=== PATIENT | male | born 1960 | race Caucasian/White ===

== ENCOUNTER 2018-08-10 06:17 | Inpatient (IN) | payer MEDICAID ==
[~2018-08-10] VITALS: Ht 172.7 cm; Wt 77.5 kg
[~2018-08-10 06:17] MED LIST: NO HOME MEDS
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
[2018-08-10] MEDS ORDERED: LISI10TA4 PO (11:01)
[2018-08-10] MEDS ORDERED: CLON-527 PO (11:01)
[2018-08-10] MEDS ORDERED: KEP500T PO (11:01)
[2018-08-10] MEDS ORDERED: DICL100G30 (11:01)
[2018-08-10] MEDS ORDERED: CYCL-1 PO (11:01)
[2018-08-10] MEDS ORDERED: loperamide 2mg capsule PO PRN (11:05)
[2018-08-10] MEDS ORDERED: magnesium hydroxide 30ml (MOM) UD suspension PO PRN (11:05)
[2018-08-10] MEDS ORDERED: mag hydrox/Alum hydrox/simeth 30ml oral suspension PO PRN (11:05)
[2018-08-10] MEDS ORDERED: LORazepam 1 MG tablet PO PRN (11:05)
[2018-08-10] MEDS ORDERED: tuberculin, purif. prot. deriv. 5 units/0.1ml ID ONE (11:05)
[2018-08-10] MEDS: acetaminophen 325mg tablet PO PRN (11:47)
[2018-08-10] MEDS ORDERED: BACL10TA PO (12:02)
[2018-08-10] MEDS ORDERED: IBUP-1986 PO (12:02)
[2018-08-10] MEDS ORDERED: LEVE500T PO (12:02)
[2018-08-10] MEDS ORDERED: ESCI10TA54 PO (12:02)
[2018-08-10] MEDS ORDERED: FOLI1TAB16 PO (12:02)
[2018-08-10] MEDS ORDERED: GABA-532 PO (12:02)
[2018-08-10] MEDS ORDERED: CLON-528 PO (12:02)
--- NOTE | 2018-08-10 12:25 | NUR ---
Malnutrition consult re: "pt c/o losing 5 pounds in last month". Pt just admitted to [facility] pending H&P, physical assessment, and documented PO intake on regular diet. Pt with no recent visits to obtain wt hx. If pt truly lost 5 pounds in one month this would be non-significant wt loss of 3% in 1 month. Will continue to follow and assess for malnutrition once additional information can be obtained in EMR. Addendum: 08/10/18 at [address] Amended: Links added.
[2018-08-10] MEDS: nicotine 21mg patch - 24 hr TD SCH (13:26)
[2018-08-10] MEDS: gabapentin 300mg capsule PO SCH ×3 (13:28→20:56)
[2018-08-10] MEDS: baclofen 10mg tablet PO PRN (13:28)
[2018-08-10] MEDS: clonazePAM 0.5mg tablet PO PRN ×2 (16:57→22:29)
[2018-08-10] MEDS ORDERED: ibuprofen 200mg tablet PO PRN (17:30)
[2018-08-10 20:34] VITALS: BP 114/86
[2018-08-10] MEDS: levetiracetam 250mg tablet PO SCH (20:56)
[2018-08-10] MEDS: hydrOXYzine 25 MG tablet PO PRN (20:57)
[2018-08-10] MEDS: ibuprofen tablet 400 MG TABLET PO PRN (21:28)
[2018-08-10] MEDS: traZODone 50mg tablet PO PRN (23:20)
--- NOTE | 2018-08-11 01:07 | NUR ---
Nursing Progress Note: Legal hold: 5151 Exp 08/13/18 @ 1015 Client on involuntary status for DTS Report received from RONNIE Verma with use of SBAR Why are they here: Pt admitted from [facility]. Pt endorses suicide thoughts and plans to overdose on heroin which is readily available and abundant on the streets. Pt states I feel suicidal, I have for a long time. Pts in 05/2018 and his sister in September 2017. Pt is homeless and unemployed. Assessment What has happened this shift: Pt was sleeping in his room, with no apparent distress observed. Pt was up for HS snack. 1:1 assessment was performed at bedside. Pt was cooperative and medication compliant. Pt reports both his anxiety and depression 11/09. Pt continues to have SI and his plan is to OD on heroin. Pt is feeling hopeless, but state he feels safe here. Pt has a healing wound on scalp, wound is closed, some flaky skin noted. Pt states he has 2 children that are estranged. And is hoping he will able to apply for some sort of disability. Pt is a smoker and is wearing a nicotine patch. Pt requested to leave patch on until morning. This account underwriter explained the risks with this. It may effect pts sleep and can cause night alves. Pt states he will try this first night and see how he feels in the morning. This account underwriter encouraged using lozenges or gum for night instead. Pt was administered 50mg of Trazadone with effect. Pt has epilepsy and last seizure was reported for 08/06/18. S/I, H/I: Pt reports SI, using heroin to overdose A/VH: None reported or observed. Pt denies Sleep: Pt sleep with 50mg of Trazadone ADL's: Independent Group attendance: second shift supervisor, no group Were meds taken: Pt medication compliant Any med S/E: None reported or observed Mental Status Exam Appearance: Clean, appropriately dressed in green scrubs, looks older than stated age Eye contact: Good Behavior: Cooperative, guarded Speech: Clear, normal rate and rhythm Mood: Depressed Affect: Flat Thought process: Linear Thought Content: Pt worried about finding a place to live Cognition: A&O x4 Insight: Fair Judgment: Poor Interventions PRN's used: Motrin for pain, Klonopin for anxiety, Trazadone for sleeping Therapeutic interventions: Maintained a safe and supportive environment, provided medication administration and education, monitored for change in behavior and needed interventions, monitored for seizures, Q 15 min safety checks. Restraints/seclusion/emergency medication: N/A Justification of Continued Inpatient Treatment: Continued therapeutic support and medication management needed to provide stabilization to prevent decompensation, decrease risk to patient and readmittance.
[2018-08-11] MEDS: baclofen 10mg tablet PO PRN ×3 (05:54→23:48)
[2018-08-11] MEDS: ibuprofen tablet 400 MG TABLET PO PRN (05:54)
[2018-08-11] MEDS ORDERED: citalopram 20mg tablet PO SCH (08:00)
[2018-08-11] MEDS: clonazePAM 0.5mg tablet PO PRN ×2 (08:31→18:10)
[2018-08-11] MEDS: levetiracetam 250mg tablet PO SCH ×2 (08:52→20:52)
[2018-08-11] MEDS: lisinopril 10 MG tablet PO SCH (08:52)
[2018-08-11] MEDS: gabapentin 300mg capsule PO SCH (08:52)
[2018-08-11] MEDS: folic acid 1mg tablet PO SCH (08:53)
[2018-08-11] MEDS: nicotine 21mg patch - 24 hr TD SCH (08:55)
--- NOTE | 2018-08-11 09:06 | NUR ---
F/u: Pt PO 100% regular meals meeting needs and does not qualify for malnutrition at this time. Addendum: 08/11/18 at [address] Amended: Links added.
[2018-08-11] MEDS ORDERED: duloxetine 30mg CAPSULE.DR PO ONE (10:35)
[2018-08-11] MEDS ORDERED: buprenorphine/naloxone 2-0.5mg sublingual tablet SL ONE (10:35)
[2018-08-11 11:27] LABS: CHOL/HDL RATIO 2.8 (0.00-4.99); CHOLESTEROL 147 MG/DL (0-200); HDL CHOLESTEROL 53 MG/DL (35-60); LDL CHOLESTEROL 75 MG/DL (50-100); TRIGLYCERIDES 160 MG/DL (20-135)
[2018-08-11] MEDS: gabapentin 400mg capsule PO SCH ×3 (13:43→20:52)
[2018-08-11] MEDS: acetaminophen 325mg tablet PO PRN ×3 (13:48→23:48)
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
[2018-08-11] MEDS: buprenorphine/naloxone 2-0.5mg sublingual tablet SL SCH (20:52)
[2018-08-11] MEDS: traZODone 50mg tablet PO PRN (20:56)
--- NOTE | 2018-08-12 01:16 | NUR ---
Nursing Progress Note: Legal hold: 5151 Exp 08/13/18 @ 1015 Client on involuntary status for DTS Report received from JAIMEE Verma with use of SBAR Why are they here: Pt admitted from [facility]. Pt endorses suicide thoughts and plans to overdose on heroin which is readily available and abundant on the streets. Pt states I feel suicidal, I have for a long time. Pts in 05/2018 and his sister in September 2017. Pt is homeless and unemployed. Assessment What has happened this shift: Patient sits in community room watching TV on change of shift until bed time. He is cooperative with assessment and medication compliant. When asked if he was feeling suicidal he responded," I guess not", but would not elaborate any further. He says he feels "a little depressed." He talks about the of his , and the loss of a house that was "his nest egg." He utilizes PRN Tylenol and baclofen for his back pain. S/I, H/I: "I guess not" A/VH: Denies. Sleep: see sleep assessment ADL's: Independent Group attendance: Yes. Were meds taken: Pt medication compliant Any med S/E: None reported or observed Mental Status Exam Appearance: Clean,dressed in green scrubs Eye contact: fair Behavior: Cooperative, guarded Speech: Clear, normal rate and rhythm Mood: Depressed Affect: Flat Thought process: Linear Thought Content: Pt feeling depressed over loss of Cognition: A&O x4 Insight: Fair Judgment: Poor Interventions PRN's used: baclofen, Tylenol, trazodone Therapeutic interventions: Maintained a safe and supportive environment, provided medication administration and education, monitored for change in behavior and needed interventions, monitored for seizures, Q 15 min safety checks. Restraints/seclusion/emergency medication: N/A Justification of Continued Inpatient Treatment: Continued therapeutic support and medication management needed to provide stabilization, interrupt current crisis, and to prevent decompensation, decrease risk to patient and readmittance.
[2018-08-12] MEDS: clonazePAM 0.5mg tablet PO PRN ×2 (07:59→21:18)
[2018-08-12] MEDS: levetiracetam 250mg tablet PO SCH ×2 (08:00→20:05)
[2018-08-12] MEDS: folic acid 1mg tablet PO SCH (08:00)
[2018-08-12] MEDS: nicotine 21mg patch - 24 hr TD SCH (08:00)
[2018-08-12] MEDS ORDERED: duloxetine 30mg CAPSULE.DR PO SCH (08:00)
[2018-08-12] MEDS: gabapentin 400mg capsule PO SCH ×4 (08:01→21:18)
[2018-08-12] MEDS: lisinopril 10 MG tablet PO SCH (08:01)
[2018-08-12] MEDS: buprenorphine/naloxone 2-0.5mg sublingual tablet SL SCH ×2 (08:02→20:05)
[2018-08-12 08:12] VITALS: BP 101/70
[2018-08-12] MEDS: acetaminophen 325mg tablet PO PRN ×3 (09:34→23:30)
[2018-08-12] MEDS: hydrOXYzine 25 MG tablet PO PRN (13:59)
[2018-08-12] MEDS: baclofen 10mg tablet PO PRN ×2 (13:59→23:30)
[2018-08-12] MEDS: ibuprofen tablet 400 MG TABLET PO PRN (13:59)
--- NOTE | 2018-08-12 17:17 | NUR ---
Nursing Progress Note: Legal hold: 5151 Exp 08/13/18 @ 1015 Client on involuntary status for DTS Report received from JAIMEE Loza with use of SBAR Why are they here: Pt admitted from [facility]. Pt endorses suicide thoughts and plans to overdose on heroin which is readily available and abundant on the streets. Pt states I feel suicidal, I have for a long time. Pts in 05/2018 and his sister in September 2017. Pt is homeless and unemployed. Assessment What has happened this shift: Patient mainly stays in the group room during daytime, watching t.v., going to groups, eating and lightly socializing with peers. Clarified conversation yesterday with patient. He does state that one of his sisters last year. He was living with his half sister and her boyfriend in a field. The sister and boyfriend did not receive their SSI checks, and are struggling to survive. The patient has no form of income, so he went to the [facility] for two days before being admitting to this facility. Pt. has chronic pain and was put on Suboxone yesterday, patient states that Dr. Loco will increase today. Pt. does spend most of the day asking for medications, prns, and this occupies most of the patient's thoughts. Patient remains evasive about SI, drug use. Pt. does have obvious pain that is being treated. S/I, H/I: Pt will not or cannot say on SI. A/VH: Denies. Sleep: 6.5 NOC ADL's: Independent Group attendance: Yes. Were meds taken: Pt medication compliant Any med S/E: None reported or observed Mental Status Exam Appearance: Clean, appropriately dressed in green scrubs, looks older than stated age Eye contact: Good Behavior: Cooperative, guarded Speech: Clear, normal rate and rhythm Mood: Depressed Affect: Flat Thought process: Linear Thought Content: Pt worried about finding a place to live, no income. Cognition: A&O x4 Insight: Fair Judgment: Poor Interventions PRN's used: Klonopin, baclofen, motrin Therapeutic interventions: Maintained a safe and supportive environment, provided medication administration and education, monitored for change in behavior and needed interventions, monitored for seizures, Q 15 min safety checks. Restraints/seclusion/emergency medication: N/A Justification of Continued Inpatient Treatment: Continued therapeutic support and medication management needed to provide stabilization, interrupt current crisis, and to prevent decompensation, decrease risk to patient and readmittance.
[2018-08-12 20:41] VITALS: BP 105/65
[2018-08-12] MEDS: traZODone 50mg tablet PO PRN ×2 (21:18→21:58)
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
[2018-08-13 07:00] VITALS: BP 119/79
[2018-08-13] MEDS: nicotine 21mg patch - 24 hr TD SCH (08:23)
[2018-08-13] MEDS: LIDOcaine 5% patch TP SCH (08:24)
[2018-08-13] MEDS: levetiracetam 250mg tablet PO SCH ×2 (08:24→20:39)
[2018-08-13] MEDS: baclofen 10mg tablet PO PRN ×2 (08:25→20:39)
[2018-08-13] MEDS: folic acid 1mg tablet PO SCH (08:25)
[2018-08-13] MEDS: hydrOXYzine 25 MG tablet PO PRN (08:25)
[2018-08-13] MEDS: duloxetine 30mg CAPSULE.DR PO SCH (08:25)
[2018-08-13] MEDS: buprenorphine/naloxone 2-0.5mg sublingual tablet SL SCH ×2 (08:26→20:40)
[2018-08-13] MEDS: lisinopril 10 MG tablet PO SCH (08:27)
[2018-08-13] MEDS: gabapentin 400mg capsule PO SCH ×4 (08:33→20:40)
[2018-08-13] MEDS: ibuprofen tablet 400 MG TABLET PO PRN (10:56)
--- NOTE | 2018-08-13 12:05 | NUR ---
Nurses Note: Patient's suboxone was increased to 1.5 tablets. 1/2 tab wasted with Chip Pfeiffer RN.
--- NOTE | 2018-08-13 12:09 | NUR ---
Nursing Progress Note: Legal hold: 5250 Client on involuntary status for DTS Report received from JAIMEE Wright with use of SBAR Why are they here: Pt admitted from [facility]. Pt endorses suicide thoughts and plans to overdose on heroin which is readily available and abundant on the streets. Pt states I feel suicidal, I have for a long time. Pts in 05/2018 and his sister in September 2017. Pt is homeless and unemployed. Assessment What has happened this shift: Received patient sleeping in bed. Awakened for breakfast. Patient spends his day in group room, eating, going to groups and socializing with peers. New orders to increase Suboxone to 1.5 tabs b.i.d., Lidocaine patch applied to Lumbosacral area. Motrin given for pain in addition. Patient states that Suboxone only takes the edge off. Patient also given baclofen, hydroxyzine. Patient requesting Klonopin for pain, educated that this medication is not for pain, patient does not appear to be anxious at this time, and had already received hydroxyzine. 5250 served to patient. S/I, H/I: Passive SI A/VH: Denies. Sleep: 4.0 hrs NOC ADL's: Independent Group attendance: Yes. Were meds taken: Pt medication compliant Any med S/E: None reported or observed Mental Status Exam Appearance: Clean, appropriately dressed in green scrubs, looks older than stated age Eye contact: Good Behavior: Cooperative, guarded Speech: Clear, normal rate and rhythm Mood: Depressed Affect: Blunted Thought process: Linear Thought Content: Pt worried about finding a place to live, no income. Cognition: A&O x4 Insight: Fair Judgment: Poor Interventions PRN's used: Baclofen, motrin, hydroxyzine Therapeutic interventions: Maintained a safe and supportive environment, provided medication administration and education, monitored for change in behavior and needed interventions, monitored for seizures, Q 15 min safety checks. Restraints/seclusion/emergency medication: N/A Justification of Continued Inpatient Treatment: Continued therapeutic support and medication management needed to provide stabilization, interrupt current crisis, and to prevent decompensation, decrease risk to patient and readmittance.
[2018-08-13 20:00] VITALS: BP 111/67
[2018-08-13] MEDS: traZODone 50mg tablet PO PRN ×2 (20:40→22:09)
--- NOTE | 2018-08-13 23:46 | NUR ---
Nursing Progress Note: Legal hold: 5250 Client on involuntary status for DTS Report received from JAIMEE Wright with use of SBAR Why are they here: Pt admitted from [facility]. Pt endorses suicide thoughts and plans to overdose on heroin which is readily available and abundant on the streets. Pt states I feel suicidal, I have for a long time. Pts in 05/2018 and his sister in September 2017. Pt is homeless and unemployed. Assessment What has happened this shift: Pt was in hallway at change of shift. 1:1 assessment completed at bedside. Pt reports he continues to have pain 11/09. Pt states his lidocaine patch came off in the shower during day shift and he threw it away in the trash. Located lidocaine patch in shower trash can. Pt states "I'm always in pain, I've been taking opiates for years and now I'm cut off and none of these meds are helping for pain." Pt was offerered prns and provided w/ice pack prn. Pt spent time sitting in the group room and walking between his room, rec room and group room during the evening. Spent time watching tv. Pt removed his nicotine patch at evening med pass. Pt denies s/i stating "not today." S/I, H/I: denies A/VH: Denies. Sleep: pt is not sleeping much during the night, has difficult time falling asleep despite repeating dose of trazodone. ADL's: Independent Group attendance: Yes. Were meds taken: Pt medication compliant Any med S/E: None reported or observed Mental Status Exam Appearance: Clean, appropriately dressed in green scrubs, looks older than stated age Eye contact: Good Behavior: Cooperative, guarded Speech: Clear, normal rate and rhythm Mood: Depressed, anxious Affect: constricted Thought process: Linear Thought Content: Pt worried about finding a place to live, no income. Cognition: A&O x4 Insight: Fair Judgment: Poor Interventions PRN's used: Baclofen, Therapeutic interventions: Maintained a safe and supportive environment, provided medication administration and education, monitored for change in behavior and needed interventions, monitored for seizures, Q 15 min safety checks. Restraints/seclusion/emergency medication: N/A Justification of Continued Inpatient Treatment: Continued therapeutic support and medication management needed to provide stabilization, interrupt current crisis, and to prevent decompensation, decrease risk to patient and readmittance.
[2018-08-14] MEDS: baclofen 10mg tablet PO PRN (04:47)
[2018-08-14] MEDS: ibuprofen tablet 400 MG TABLET PO PRN (04:47)
[2018-08-14] MEDS: acetaminophen 325mg tablet PO PRN (04:47)
[2018-08-14 08:00] VITALS: BP 125/75
[2018-08-14] MEDS: folic acid 1mg tablet PO SCH (08:21)
[2018-08-14] MEDS: duloxetine 30mg CAPSULE.DR PO SCH (08:21)
[2018-08-14] MEDS: gabapentin 400mg capsule PO SCH (08:22)
[2018-08-14] MEDS: levetiracetam 250mg tablet PO SCH ×2 (08:22→20:17)
[2018-08-14] MEDS: lisinopril 10 MG tablet PO SCH (08:23)
[2018-08-14] MEDS: buprenorphine/naloxone 2-0.5mg sublingual tablet SL SCH ×2 (08:23→20:19)
[2018-08-14] MEDS: nicotine 21mg patch - 24 hr TD SCH (08:24)
[2018-08-14] MEDS: LIDOcaine 5% patch TP SCH (08:25)
[2018-08-14] MEDS: clonazePAM 0.5mg tablet PO PRN ×2 (09:38→15:52)
[2018-08-14] MEDS: tizanidine 4mg tablet PO PRN ×3 (09:38→20:18)
[2018-08-14] MEDS: gabapentin 300mg capsule PO SCH ×3 (12:45→20:18)
--- NOTE | 2018-08-14 16:38 | NUR ---
1:1 DISCHARGE PLANNING Pt interviewed with Nakul from [facility]. Pt was tentatively accepted for services. ADAN informed there is an extensive wait list. ELISE CamachoW
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
[2018-08-14 20:00] VITALS: BP 108/65
[2018-08-14] MEDS: traZODone 50mg tablet PO PRN (20:17)
--- NOTE | 2018-08-15 00:26 | NUR ---
Nursing Progress Note: The patient was up on the unit. He was friendly and pleasant during the evening assessment. He has been medication and treatment compliant. One to one with the patient to assess severity of depressive symptoms and self harm risk. The patient remains in q 15 minute safety checks and has not had any self injurious behaviors reported reported or observed. The patient stated that he felt more depressed and explained, "today I had a set back" because he went to group and when asked how he requested to show what he had done in one of the groups and it was a detective showing all his recent traumas that have happened to him this year. Interestingly the spelling was very poor and somewhat disorganized. He stated that he has not had any alcohol for the past month and has no desire to drink. He then added, "I need to find a way to get some finances" He reports anxiety and he stated that he has been a worrier his whole life. He endorses continued suicidal thoughts. He talked about being homeless and recently staying [place] a bridge. He denies medication side effects. He denies thoughts to harm others. He denies hallucinations and none were evident during the evening assessment. He has no plans for self care if he were to leave the inpatient unit. He stated his appetite is good. He appears well groomed and appropriately dressed. Insight is fair.
[2018-08-15] MEDS: ibuprofen tablet 400 MG TABLET PO PRN ×3 (04:25→23:37)
[2018-08-15] MEDS: LIDOcaine 5% patch TP SCH (07:41)
[2018-08-15] MEDS: nicotine 21mg patch - 24 hr TD SCH (07:41)
[2018-08-15] MEDS: levetiracetam 250mg tablet PO SCH ×2 (07:42→20:58)
[2018-08-15] MEDS: buprenorphine/naloxone 2-0.5mg sublingual tablet SL SCH ×2 (07:42→20:59)
[2018-08-15] MEDS: duloxetine 30mg CAPSULE.DR PO SCH (07:42)
[2018-08-15] MEDS: folic acid 1mg tablet PO SCH (07:42)
[2018-08-15] MEDS: gabapentin 300mg capsule PO SCH ×4 (07:42→20:59)
[2018-08-15] MEDS: lisinopril 10 MG tablet PO SCH (07:47)
[2018-08-15 08:00] VITALS: BP 102/69
[2018-08-15] MEDS: hydrOXYzine 25 MG tablet PO PRN (08:59)
[2018-08-15] MEDS: tizanidine 4mg tablet PO PRN (09:00)
[2018-08-15] MEDS: clonazePAM 0.5mg tablet PO PRN (12:51)
--- NOTE | 2018-08-15 15:36 | NUR ---
Pt with good appetite and PO 100% regular meals meeting needs Recommend: 1. Continue regular diet 2. Bowel care if needed 3. weekly weights Addendum: 08/15/18 at [address] Amended: Links added.
--- NOTE | 2018-08-15 16:28 | NUR ---
NURSING PROGRESS NOTE Legal hold: 5250 Client on involuntary status for DTS Report received from JAIMEE Wright with use of SBAR Why are they here: Pt admitted from [facility]. Pt endorses suicide thoughts and plans to overdose on heroin which is readily available and abundant on the streets. Pt states I feel suicidal, I have for a long time. Pts in 05/2018 and his sister in September 2017. Pt is homeless and unemployed. Assessment What has happened this shift: The patient was awake at change of shift. Ate breakfast and is med compliant. Depressed mood, anxious affect. Appears to have an essential tremor and denies being in etoh withdrawals. continue's to talk about 's , sisters and the of his best friends father. He is guarded when asked about suicidal thoughts and essentially doesn't answer the question. He c/o pain often today in his lower back and was given prn's for anxiety and muscle spasms. He paces and is hard to sit still. 5250 Hearing today was upheld. He cannot formulate a plan for housing. "He is med compliant and eating well. Has been accepted at [facility] but knows there is a waiting list. S/I, H/I: evasive and guarded A/VH: Denies. Sleep: None Group attendance: Yes. Were meds taken: Pt medication compliant Any med S/E: None reported or observed Mental Status Exam Appearance: Clean Eye contact: Fair Behavior: Cooperative Speech: Clear, normal rate and rhythm Mood: Depressed, anxious Affect: constricted Thought process: Linear Thought Content: About recent losses Cognition: A&O x4 Insight: Fair Judgment: Poor Interventions PRN's used: Klonopin, tylenol, Zanaflex Therapeutic interventions: Maintained a safe and supportive environment, provided medication administration and education, monitored for change in behavior and needed interventions, monitored for seizures, Q 15 min safety checks. Restraints/seclusion/emergency medication: N/A Justification of Continued Inpatient Treatment: Continued therapeutic support and medication management needed to provide stabilization, interrupt current crisis, and to prevent decompensation, decrease risk to patient and readmittance.
--- NOTE | 2018-08-15 16:39 | NUR ---
1:1 DISCHARGE PLANNING SW emailed Jamir at [facility] for SSI Advocacy and application needs. ADAN cc'd all SW's to assist in this health technical writer is out of the office at time of scheduling. ELISE CamachoW
[2018-08-15 19:00] VITALS: BP 110/70
[2018-08-15] MEDS: traZODone 50mg tablet PO PRN ×2 (20:59→23:37)
[2018-08-15] MEDS: acetaminophen 325mg tablet PO PRN (23:37)
--- NOTE | 2018-08-16 02:30 | NUR ---
Nicotine Patch removal: Nicotine patch removed after HS medications and properly disposed of.
--- NOTE | 2018-08-16 02:31 | NUR ---
NURSING PROGRESS NOTE Legal hold: 5250 Client on involuntary status for DTS Report received from JAIMEE Cisneros with use of SBAR Why are they here: Pt admitted from [facility]. Pt endorses suicide thoughts and plans to overdose on heroin which is readily available and abundant on the streets. Pt states I feel suicidal, I have for a long time. Pts in 05/2018 and his sister in September 2017. Pt is homeless and unemployed. Assessment What has happened this shift: Patient is up and in the group room at the change of shift. He is watching a movie with other peers. He does not interact much with others but spends most of his evening in the group room watching TV. He is compliant for a 1:1 assessment which is done in the observation room, He denies HI, AH/VH this shift. He does not talk much about SI when asked. 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 He is up late this evening with complaints of continued back pain and inability to fall asleep. He is given pain medications and a Trazodone 50 mg again as ordered, then provided with a fresh heat pack. S/I, H/I: Evasive A/VH: Denies. Sleep: None Group attendance: Yes. Were meds taken: Medication compliant Any med S/E: None reported or observed Mental Status Exam Appearance: Clean Eye contact: Fair Behavior: Cooperative Speech: Clear, normal rate and rhythm Mood: Depressed, anxious Affect: Constricted Thought process: Linear Thought Content: Back pain and inability to sleep Cognition: A&O x4 Insight: Fair Judgment: Poor Interventions PRN's used: Tylenol, Ibuprofen, Trazodone Therapeutic interventions: Maintained a safe and supportive environment, provided medication administration and education, monitored for change in behavior and needed interventions, monitored for seizures, Q 15 min safety checks. Restraints/seclusion/emergency medication: N/A Justification of Continued Inpatient Treatment: Continued therapeutic support and medication management needed to provide stabilization, interrupt current crisis, and to prevent decompensation, decrease risk to patient and readmittance.
[2018-08-16 08:00] VITALS: BP 106/70
[2018-08-16] MEDS: LIDOcaine 5% patch TP SCH (08:04)
[2018-08-16] MEDS: nicotine 21mg patch - 24 hr TD SCH (08:04)
[2018-08-16] MEDS: duloxetine 30mg CAPSULE.DR PO SCH ×2 (08:05→12:27)
[2018-08-16] MEDS: levetiracetam 250mg tablet PO SCH ×2 (08:05→20:38)
[2018-08-16] MEDS: folic acid 1mg tablet PO SCH (08:05)
[2018-08-16] MEDS: gabapentin 300mg capsule PO SCH ×4 (08:05→20:38)
[2018-08-16] MEDS: buprenorphine/naloxone 2-0.5mg sublingual tablet SL SCH ×2 (08:05→20:38)
[2018-08-16] MEDS: lisinopril 10 MG tablet PO SCH (08:06)
[2018-08-16] MEDS: ibuprofen tablet 400 MG TABLET PO PRN ×2 (12:27→21:53)
[2018-08-16] MEDS: tizanidine 4mg tablet PO PRN ×2 (12:28→20:36)
[2018-08-16] MEDS: clonazePAM 0.5mg tablet PO PRN (14:06)
--- NOTE | 2018-08-16 15:53 | NUR ---
NURSING PROGRESS NOTE Legal hold: 5250 Client on involuntary status for DTS Report received from JAIMEE Lennon with use of SBAR Why are they here: Pt admitted from [facility]. Pt endorses suicide thoughts and plans to overdose on heroin which is readily available and abundant on the streets. Pt states I feel suicidal, I have for a long time. Pts in 05/2018 and his sister in September 2017. Pt is homeless and unemployed. Assessment What has happened this shift: The patient was asleep at change of shift. He did get up for breakfast. Stated he did not sleep well last night due to pain issues in his back. He fell asleep at the group room table sitting up during mid morning. As the day progressed he was more alert. He is sad and hopeless regarding his future. He appreciates the help he is receiving here. He was treated for his back pain and anxiety and states the Klonopin helps his tremor "go away." Depressed mood and sad affect. Responds well to reassurance. S/I, H/I: Denies A/VH: Denies. Sleep: Napped frequently Group attendance: Yes. Were meds taken: Medication compliant Any med S/E: None reported or observed Mental Status Exam Appearance: Clean Eye contact: Fair Behavior: Cooperative Speech: Clear, normal rate and rhythm Mood: Depressed, anxious Affect: Sad Thought process: Linear Thought Content: Back pain and inability to sleep Cognition: A&O x4 Insight: Fair Judgment: Poor Interventions PRN's used: Tylenol, Ibuprofen, Klonopin Therapeutic interventions: Maintained a safe and supportive environment, provided medication administration and education, monitored for change in behavior and needed interventions, monitored for seizures, Q 15 min safety checks. Restraints/seclusion/emergency medication: N/A Justification of Continued Inpatient Treatment: Continued therapeutic support and medication management needed to provide stabilization, interrupt current crisis, and to prevent decompensation, decrease risk to patient and readmittance.
[2018-08-16 19:00] VITALS: BP 107/62
[2018-08-16] MEDS: traZODone 50mg tablet PO PRN ×2 (20:37→21:52)
[2018-08-16] MEDS: acetaminophen 325mg tablet PO PRN (20:37)
[2018-08-17] MEDS: clonazePAM 0.5mg tablet PO PRN ×2 (01:29→19:38)
[2018-08-17] MEDS: hydrOXYzine 25 MG tablet PO PRN ×2 (01:29→22:21)
[2018-08-17] MEDS: acetaminophen 325mg tablet PO PRN ×3 (01:30→22:22)
--- NOTE | 2018-08-17 02:05 | NUR ---
NURSING PROGRESS NOTE Legal hold: 5250 Client on involuntary status for DTS Report received from JAIMEE Cisneros with use of SBAR Why are they here: Pt admitted from [facility]. Pt endorses suicide thoughts and plans to overdose on heroin which is readily available and abundant on the streets. Pt states I feel suicidal, I have for a long time. Pts in 05/2018 and his sister in September 2017. Pt is homeless and unemployed. Assessment What has happened this shift: Patient is up and in the group room at the change of shift. He is sitting up in the chair sleeping. When awoken he is calm and agrees to a 1:1 assessment in his room. When asked about SI he denies it then states "This is not the place to think about that stuff." but would not elaborate on what he meant by his statement. He denies HI, AH/VH. He is goal oriented and does talk about his hopes to get out of here and get off the streets and be able to "function" and "get better". He is compliant with all his evening medications. Nicotine patch and Lidoderm patch removed during assessment. S/I, H/I: Denies SI, States "This is not the place to think about that stuff.", denies HI A/VH: Denies. Sleep: See sleep assessment Group attendance: No groups this shift. Were meds taken: Medication compliant Any med S/E: None reported or observed Mental Status Exam Appearance: Clean Eye contact: Fair Behavior: Cooperative Speech: Clear, normal rate and rhythm Mood: Depressed, anxious Affect: Constricted Thought process: Linear Thought Content: Pain, goal oriented focused on being able to get a place and "Function" Cognition: A&O x4 Insight: Fair Judgment: Poor Interventions PRN's used: Tylenol, Ibuprofen, Trazodone, Klonopin, Zanaflex Therapeutic interventions: Maintained a safe and supportive environment, provided medication administration and education, monitored for change in behavior and needed interventions, monitored for seizures, Q 15 min safety checks. Restraints/seclusion/emergency medication: N/A Justification of Continued Inpatient Treatment: Continued therapeutic support and medication management needed to provide stabilization, interrupt current crisis, and to prevent decompensation, decrease risk to patient and readmittance.
[2018-08-17] MEDS: nicotine 21mg patch - 24 hr TD SCH (07:49)
[2018-08-17 07:50] VITALS: BP 97/65
[2018-08-17] MEDS: gabapentin 300mg capsule PO SCH ×4 (07:50→20:28)
[2018-08-17] MEDS: levetiracetam 250mg tablet PO SCH ×2 (07:50→20:28)
[2018-08-17] MEDS: buprenorphine/naloxone 2-0.5mg sublingual tablet SL SCH ×2 (07:50→20:28)
[2018-08-17] MEDS: duloxetine 30mg CAPSULE.DR PO SCH ×2 (07:50→12:43)
[2018-08-17] MEDS: folic acid 1mg tablet PO SCH (07:51)
[2018-08-17] MEDS: tizanidine 4mg tablet PO PRN ×2 (07:51→19:38)
[2018-08-17] MEDS: ibuprofen tablet 400 MG TABLET PO PRN ×2 (07:51→19:38)
[2018-08-17] MEDS: lisinopril 10 MG tablet PO SCH (07:56)
[2018-08-17] MEDS: LIDOcaine 5% patch TP SCH (08:25)
--- NOTE | 2018-08-17 14:19 | NUR ---
NURSING PROGRESS NOTE: Legal hold: 5250 Client on involuntary status for DTS Report received from JAIMEE Lennon with use of SBAR Why are they here: Pt admitted from [facility]. Pt endorses suicide thoughts and plans to overdose on heroin which is readily available and abundant on the streets. Pt states I feel suicidal, I have for a long time. Pts in 05/2018 and his sister in September 2017. Pt is homeless and unemployed. Assessment What has happened this shift: Pt. Sleeping at change of shift. On initial interaction, requested medications for chronic pain. Cooperative with 1:1 assessment. Denies current SI, but also admits he has intermittent thoughts without a plan. States he feels worthless, when asked what causes him to feel this way he responded "my son tells me that". He then stated his son really doesn't know him. He discussed his current and previous struggles with alcohol. Stated "it makes you feel strong but it actually weakens you.". States his anxiety/depression is a 3/10 and pain is rated at 7/10. Up in community room for breakfast, returning to room for a nap. Minimal interaction with staff or other clients on the unit. Requested pain meds for chronic back pain. S/I, H/I: Denies SI, but admits to intermittent thoughts of harming himself. Denies a plan. denies HI A/VH: Denies. Sleep: 6.25 Group attendance: Were meds taken: Medication compliant Any med S/E: None reported or observed Mental Status Exam Appearance: Clean Eye contact: Fair Behavior: Cooperative Speech: Clear, normal rate and rhythm Mood: Depressed, anxious, I have one left, my , my sister , and my mother . Affect: Congruent with mood Thought process: Linear Thought Content: Pain, purpose or function in life. Cognition: A&O x4 Insight: Fair Judgment: Poor Interventions PRN's used: Ibuprofen, Zanaflex Therapeutic interventions: Maintained a safe and supportive environment, provided medication administration and education, monitored for change in behavior and needed interventions, monitored for seizures, Q 15 min safety checks. Restraints/seclusion/emergency medication: N/A Justification of Continued Inpatient Treatment: Continued therapeutic support and medication management needed to provide stabilization, interrupt current crisis, and to prevent decompensation, decrease risk to patient and readmittance. Addendum: 08/17/18 at 1508 by Yeni Reynolds RN Patient remained out of his room in the afternoon, participating in group
[2018-08-17 19:00] VITALS: BP 123/77
[2018-08-17] MEDS: traZODone 50mg tablet PO PRN ×2 (20:28→22:21)
--- NOTE | 2018-08-17 20:30 | NUR ---
Patch Removal: Nicotine Patch Removed from left shoulder @1939 and Lidocaine patch removed @1939
--- NOTE | 2018-08-18 01:06 | NUR ---
NURSING PROGRESS NOTE Legal hold: 5250 Client on involuntary status for DTS Report received from JAIMEE Cisneros with use of SBAR Why are they here: Pt admitted from [facility]. Pt endorses suicide thoughts and plans to overdose on heroin which is readily available and abundant on the streets. Pt states I feel suicidal, I have for a long time. Pts in 05/2018 and his sister in September 2017. Pt is homeless and unemployed. Assessment What has happened this shift: Patient is in his room sleeping at change of shift. He is awoken for a 1;1 assessment which he agrees to at his bedside. He confirms that he has been feeling more depressed to day and states that he has had thoughts of suicide, not being here but he has no plan or intent right now. He expresses the feeling of hopelessness. He is short in conversation and during the assessment gets up walks to his bathroom uses it and then returns to bed. It is noted that patient falls back asleep. He spends the first part of the shift napping. He gets up for snack time and spends sometime in the group room watching TV with minimal interactions with others. He is compliant with all his medications and reports no side effects. Nicotine patch and Lidoderm patch removed during assessment. S/I, H/I: Denies plan or intent but confirms intermittent thoughts. Denies HI A/VH: Denies Sleep: See sleep assessment Group attendance: No groups this shift. Were meds taken: Medication compliant Any med S/E: None reported or observed Mental Status Exam Appearance: Clean Eye contact: Fair Behavior: Cooperative Speech: Clear, normal rate and rhythm Mood: Depressed, anxious Affect: Constricted Thought process: Linear Thought Content: Pain, depressed mood, feelings of haplessness Cognition: A&O x4 Insight: Fair Judgment: Poor Interventions PRN's used: Tylenol, Ibuprofen, Trazodone, Klonopin, Zanaflex, Atarax Therapeutic interventions: Maintained a safe and supportive environment, provided medication administration and education, monitored for change in behavior and needed interventions, monitored for seizures, Q 15 min safety checks. Restraints/seclusion/emergency medication: N/A Justification of Continued Inpatient Treatment: Continued therapeutic support and medication management needed to provide stabilization, interrupt current crisis, and to prevent decompensation, decrease risk to patient and readmittance.
[2018-08-18] MEDS: nicotine 21mg patch - 24 hr TD SCH (07:30)
[2018-08-18] MEDS: buprenorphine/naloxone 2-0.5mg sublingual tablet SL SCH ×2 (07:31→21:11)
[2018-08-18] MEDS: LIDOcaine 5% patch TP SCH (07:31)
[2018-08-18] MEDS: duloxetine 30mg CAPSULE.DR PO SCH ×2 (07:31→12:10)
[2018-08-18] MEDS: lisinopril 10 MG tablet PO SCH (07:33)
[2018-08-18] MEDS: levetiracetam 250mg tablet PO SCH ×2 (07:33→21:12)
[2018-08-18] MEDS: folic acid 1mg tablet PO SCH (07:33)
[2018-08-18] MEDS: gabapentin 300mg capsule PO SCH ×4 (07:33→21:11)
[2018-08-18 08:00] VITALS: BP 116/73
[2018-08-18] MEDS: ibuprofen tablet 400 MG TABLET PO PRN ×2 (12:11→22:51)
--- NOTE | 2018-08-18 17:41 | NUR ---
NURSING PROGRESS NOTE Legal hold: 5250 Client on involuntary status for DTS Report received from JAIMEE Lennon with use of SBAR Why are they here: Pt admitted from [facility]. Pt endorses suicide thoughts and plans to overdose on heroin which is readily available and abundant on the streets. Pt states I feel suicidal, I have for a long time. Pts in 05/2018 and his sister in September 2017. Pt is homeless and unemployed. Assessment What has happened this shift: Patient up in visible on unit today. Patient went to both groups and attended all meals. Patient visiting at times appropriately with peers. Patient continues to endorse depression, but denies suicidal thoughts at this time and is anxious related to discussing this discharge options with the manager social work tomorrow. Patient denies auditory hallucinations and does not exhibit any delusional thought processes. Patient remained in hospital clothes all day. S/I, H/I: Denies A/VH: Denies. Sleep: Napped infrequently Group attendance: Yes. Were meds taken: Medication compliant Any med S/E: None reported or observed Mental Status Exam Appearance: Clean Eye contact: Fair Behavior: Cooperative Speech: Clear, normal rate and rhythm Mood: Depressed, anxious Affect: Sad Thought process: Linear Thought Content: Back pain and inability to sleep Cognition: A&O x4 Insight: Fair Judgment: Poor Interventions PRN's used: Ibuprofen, Therapeutic interventions: Maintained a safe and supportive environment, provided medication administration and education, monitored for change in behavior and needed interventions, monitored for seizures, Q 15 min safety checks. Restraints/seclusion/emergency medication: N/A Justification of Continued Inpatient Treatment: Continued therapeutic support and medication management needed to provide stabilization, interrupt current crisis, and to prevent decompensation, decrease risk to patient and readmittance.
[2018-08-18 19:31] VITALS: BP 120/78
[2018-08-18] MEDS: traZODone 50mg tablet PO PRN ×2 (21:12→22:48)
[2018-08-18] MEDS: hydrOXYzine 25 MG tablet PO PRN (22:48)
--- NOTE | 2018-08-19 01:27 | NUR ---
NURSING PROGRESS NOTE Legal hold: 5250 Client on involuntary status for DTS Report received from JAIMEE Lennon with use of SBAR Why are they here: Pt admitted from [facility]. Pt endorses suicide thoughts and plans to overdose on heroin which is readily available and abundant on the streets. Pt states I feel suicidal, I have for a long time. Pts in 05/2018 and his sister in September 2017. Pt is homeless and unemployed. Assessment What has happened this shift: Pt in group room socializing with other pts at start of shift. Later in shift 1:1 in pt room pt said he was doing "horrible" He said he had a conversation with the PA and he [facility] The pt is pacing in his room. Said he is unable to sleep because he is anxious. Pt understands he has limited resources, no income. Encouraged to try some relaxation techniques, given Prns to help him sleep. S/I, H/I: "Not now but I will be if discharged and am homeless." A/VH: Denies. Sleep: Asleep at this time Group attendance: Socialized in group room. Were meds taken: Medication compliant Any med S/E: None reported or observed Mental Status Exam Appearance: Clean Eye contact: Fair Behavior: Cooperative Speech: Clear, normal rate and rhythm Mood: Depressed, anxious Affect: Sad Thought process: Linear Thought Content: Concerned about discharge. Cognition: A&O x4 Insight: Fair Judgment: Poor Interventions PRN's used: Ibuprofen, Trazodone, Atarax Therapeutic interventions: Maintained a safe and supportive environment, provided medication administration and education, monitored for change in behavior and needed interventions, monitored for seizures, Q 15 min safety checks. Restraints/seclusion/emergency medication: N/A Justification of Continued Inpatient Treatment: Continued therapeutic support and medication management needed to provide stabilization, interrupt current crisis, and to prevent decompensation, decrease risk to patient and readmittance.
[2018-08-19 08:00] VITALS: BP 121/77
[2018-08-19] MEDS: levetiracetam 250mg tablet PO SCH ×2 (08:55→20:28)
[2018-08-19] MEDS: nicotine 21mg patch - 24 hr TD SCH (08:55)
[2018-08-19] MEDS: buprenorphine/naloxone 2-0.5mg sublingual tablet SL SCH ×2 (08:55→20:28)
[2018-08-19] MEDS: folic acid 1mg tablet PO SCH (08:55)
[2018-08-19] MEDS: gabapentin 300mg capsule PO SCH ×4 (08:56→20:28)
[2018-08-19] MEDS: LIDOcaine 5% patch TP SCH (08:56)
[2018-08-19] MEDS: duloxetine 30mg CAPSULE.DR PO SCH ×2 (08:56→12:23)
[2018-08-19] MEDS: tizanidine 4mg tablet PO PRN ×2 (10:17→22:08)
[2018-08-19] MEDS: acetaminophen 325mg tablet PO PRN (10:18)
[2018-08-19] MEDS: ibuprofen tablet 400 MG TABLET PO PRN (10:18)
[2018-08-19] MEDS: clonazePAM 0.5mg tablet PO PRN (12:24)
--- NOTE | 2018-08-19 14:00 | NUR ---
NURSING PROGRESS NOTE Legal hold: 5250 Client on involuntary status for DTS Report received from JAIMEE Robles with use of SBAR Why are they here: Pt admitted from [facility]. Pt endorses suicide thoughts and plans to overdose on heroin which is readily available and abundant on the streets. Pt states I feel suicidal, I have for a long time. Pts in 05/2018 and his sister in September 2017. Pt is homeless and unemployed. Assessment What has happened this shift: Patient was sleeping at change of shift and up for breakfast. Patient c/o RUVALCABA and back pain. RN gave patient Tylenol, Motrin and his Muscle Relaxer. Patient did not complain of RUVALCABA but states he needs something stronger for his back, shoulder and knee pain. Patient went to both groups today. Patient stated this morning he was depressed and had suicidal thoughts. Patient denies auditory hallucinations. Patient discharge is pending. S/I, H/I: Denies A/VH: Denies. Sleep: Napped infrequently Group attendance: Yes. Were meds taken: Medication compliant Any med S/E: None reported or observed Mental Status Exam Appearance: Clean Eye contact: Fair Behavior: Cooperative Speech: Clear, normal rate and rhythm Mood: Depressed, anxious Affect: Sad Thought process: Linear Thought Content: Back pain and inability to sleep Cognition: A&O x4 Insight: Fair Judgment: Poor Interventions PRN's used: Ibuprofen, Tylenol, Zanaflex Therapeutic interventions: Maintained a safe and supportive environment, provided medication administration and education, monitored for change in behavior and needed interventions, monitored for seizures, Q 15 min safety checks. Restraints/seclusion/emergency medication: N/A Justification of Continued Inpatient Treatment: Continued therapeutic support and medication management needed to provide stabilization, interrupt current crisis, and to prevent decompensation, decrease risk to patient and readmittance.
[2018-08-19 20:00] VITALS: BP 135/89
[2018-08-19] MEDS: traZODone 50mg tablet PO PRN (22:06)
--- NOTE | 2018-08-20 00:08 | NUR ---
RN PROGRESS NOTE: Legal hold: 5250 for DTS, hx substance use (Methamphetamine and heroin). Report received from Adriana France RN. Why are they here: Clients 05/2018 and his home is no longer habitable. Client was using Meth and Heroin and reported that he wanted to overdose in order to end his life. ASSESSMENT: THIS SHIFT: Client watched TV until 22:30 then went to his room and began writing. Client has a sleep pattern disturbance. He was compliant with meds. Client has tremors in both hands. Denies AH/VH. It appears that this may be clients baseline function. Client did not report or demonstrate SI. S/I, H/I: Denies. A/VH: Denies. Sleep: Difficulty falling asleep. ADL's: Independent. Group attendance: N/A. Were meds taken: Yes, med compliant. Any med reactions: None noted. MENTAL STATUS EXAM: Appearance: Disheveled. Eye contact: Avoids. Behavior: Cooperative Speech: WNL. Mood: Depressed Affect: Blunted. Thought process: Linear. Cognition: Linear. Insight: Poor. Judgment: Fair. INTERVENTIONS: PRN's used: Trazodone and Zanaflex. Therapeutic interventions: 1:1 assessment, medication administration/education/monitoring, Q 15 min safety checks, reorientation. Restraints/seclusion/emergency medication: N/A Justification of Continued Inpatient Treatment: Client appears to be at baseline function. Client did not report SI during this shift.
[2018-08-20 07:51] VITALS: BP 131/81
[2018-08-20] MEDS: buprenorphine/naloxone 2-0.5mg sublingual tablet SL SCH ×2 (08:58→20:18)
[2018-08-20] MEDS: levetiracetam 250mg tablet PO SCH ×2 (08:59→20:18)
[2018-08-20] MEDS: folic acid 1mg tablet PO SCH (08:59)
[2018-08-20] MEDS: gabapentin 300mg capsule PO SCH ×4 (08:59→20:18)
[2018-08-20] MEDS: clonazePAM 0.5mg tablet PO PRN ×3 (09:40→20:17)
[2018-08-20] MEDS: acetaminophen 325mg tablet PO PRN (09:44)
[2018-08-20] MEDS: tizanidine 4mg tablet PO PRN ×2 (09:44→20:17)
[2018-08-20] MEDS: LIDOcaine 5% patch TP SCH (11:12)
[2018-08-20] MEDS: nicotine 21mg patch - 24 hr TD SCH (11:12)
[2018-08-20] MEDS: duloxetine 30mg CAPSULE.DR PO SCH (13:12)
--- NOTE | 2018-08-20 16:33 | NUR ---
NURSING PROGRESS NOTE Legal hold: 5250 Client on involuntary status for DTS Report received from JAIMEE Robles with use of SBAR Why are they here: Pt admitted from [facility]. Pt endorses suicide thoughts and plans to overdose on heroin which is readily available and abundant on the streets. Pt states I feel suicidal, I have for a long time. Pts in 05/2018 and his sister in September 2017. Pt is homeless and unemployed. Assessment What has happened this shift: Patient was sleeping at change of shift and up for breakfast. Patient complaining of back pain. RN gave patient Tylenol, Naprosyn and his Muscle Relaxer. Soon after patient requested Clonazepam. Patient went to both groups today. Patient stated this morning he was depressed and had suicidal thoughts. Patient denies auditory hallucinations. RN spoke to Dr Loco who wants to keep him several more days and get patient stabilized before discharge. S/I, H/I: Yes to SI A/VH: Denies. Sleep: Napped infrequently Group attendance: Yes. Were meds taken: Medication compliant Any med S/E: None reported or observed Mental Status Exam Appearance: Clean Eye contact: Fair Behavior: Cooperative Speech: Clear, normal rate and rhythm Mood: Depressed, anxious Affect: Flat Thought process: Linear Thought Content: Back Cognition: A&O x4 Insight: Fair Judgment: Poor Interventions PRN's used: Naprosyn, Tylenol, Zanaflex, Clonazepam Therapeutic interventions: Maintained a safe and supportive environment, provided medication administration and education, monitored for change in behavior and needed interventions, monitored for seizures, Q 15 min safety checks. Restraints/seclusion/emergency medication: N/A Justification of Continued Inpatient Treatment: Continued therapeutic support and medication management needed to provide stabilization, interrupt current crisis, and to prevent decompensation, decrease risk to patient and readmittance.
[2018-08-20] MEDS: hydrOXYzine 25 MG tablet PO PRN (20:17)
[2018-08-20] MEDS: traZODone 50mg tablet PO PRN (20:18)
[2018-08-20 20:43] VITALS: BP 144/94
--- NOTE | 2018-08-20 21:12 | NUR ---
Nursing Progress Note: One to one with the patient to assess severity of depressive symptoms and self harm risk. The patient was provided with medication education. The patient has been up on the unit and has been medication compliant. The patient initially appeared irritable/frustrated during the one to one. He reports that his pain was "terrible everyday and all night" The patient was asked if he felt he was doing better here since being admitted and he stated, "I want to think so" He stated that he felt he was more emotional and and irritable during the day. He stated he has been feeling angry because his and went he went to his family home his family members had let it go into disarray to the point it had been condemned. He stated that they were all there using drugs. He also talked about the of his sister in a MVA. Discussed with the patient the phases of grief and loss. He was asked about suicidal thoughts and he replied, "I do every day. They've lightened up" He stated "I know when I walk out the door I have nothing" He stated that he has tried 4 other times to get SSI but has been denied. He feels that he is unemployable because of his pain and his lack of education. He does deny side effects to medications. He was encouraged to use his Atarax during the day to help ease his irritability and anxiety. The patient has pitting edema from his feet all the way up to his knee. He was given extra pillows to put up his legs at night and during the day to help decrease the edema.
[2018-08-21 07:16] VITALS: BP 110/76
[2018-08-21] MEDS: buprenorphine/naloxone 2-0.5mg sublingual tablet SL SCH ×2 (07:23→20:17)
[2018-08-21] MEDS: levetiracetam 250mg tablet PO SCH ×2 (07:23→20:18)
[2018-08-21] MEDS: gabapentin 300mg capsule PO SCH ×4 (07:23→20:18)
[2018-08-21] MEDS: folic acid 1mg tablet PO SCH (07:23)
[2018-08-21] MEDS: nicotine 21mg patch - 24 hr TD SCH (07:24)
[2018-08-21] MEDS: clonazePAM 0.5mg tablet PO PRN ×2 (07:28→17:38)
[2018-08-21] MEDS: LIDOcaine 5% patch TP SCH (08:00)
--- NOTE | 2018-08-21 10:36 | NUR ---
1:1 DISCHARGE PLANNING SW looked over pt forms for assistance through [employer]. ADAN learned pt has a "primary" address of [address] [place] [address] [address], [place] [address]. ADAN will coordinate discharging pt to the address he listed as primary address. ELISE CmaachoW
[2018-08-21] MEDS ORDERED: LIDOcaine 5% patch TP ONE (11:30)
[2018-08-21] MEDS: acetaminophen 325mg tablet PO PRN (11:39)
--- NOTE | 2018-08-21 12:27 | NUR ---
NURSING PROGRESS NOTE Legal hold: [id number] Client on involuntary status for DTS Report received from Adriana TRUJILLO with use of [facility] Why are they here: Pt admitted from [facility]. Pt endorses suicide thoughts and plans to overdose on heroin which is readily available and abundant on the streets. Pt states I feel suicidal, I have for a long time. Pts in 05/2018 and his sister in September 2017. Pt is homeless and unemployed. 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 They mentioned the [place]. I guess I could give it a try." Presents as focused on physical discomfort in greater degree than mental discomfort. Requested "pain medication" though unable to locate the source of his pain. Lidocaine patch placed on his lower back per his request. When asked if this was the source of his pain stated, "Well it could be, I broke my neck a couple of years ago." Brought up the of his and how it "changed everything." Presents as unable to put back the pieces of his life due to loss of spouse and the financial security she provided for them. Experiencing grief reaction as it effects his safety and security. S/I, H/I: Yes to SI A/VH: Denies. Sleep: Napped infrequently Group attendance: Yes. Were meds taken: Medication compliant Any med S/E: None reported or observed Mental Status Exam Appearance: Clean Eye contact: Fair Behavior: Cooperative Speech: Clear, normal rate and rhythm Mood: Depressed, anxious Affect: Flat Thought process: Linear Thought Content: Back Cognition: A&O x4 Insight: Fair Judgment: Poor Interventions PRN's used: Naprosyn, Tylenol, Zanaflex, Clonazepam Therapeutic interventions: Maintained a safe and supportive environment, provided medication administration and education, monitored for change in behavior and needed interventions, monitored for seizures, Q 15 min safety checks. Restraints/seclusion/emergency medication: N/A Justification of Continued Inpatient Treatment: Continued therapeutic support and medication management needed to provide stabilization, interrupt current crisis, and to prevent decompensation, decrease risk to patient and readmittance.
[2018-08-21] MEDS: duloxetine 30mg CAPSULE.DR PO SCH (12:54)
[2018-08-21 19:41] VITALS: BP 133/88
[2018-08-21] MEDS: hydrOXYzine 25 MG tablet PO PRN (20:17)
[2018-08-21] MEDS: tizanidine 4mg tablet PO PRN (20:17)
[2018-08-21] MEDS: traZODone 50mg tablet PO PRN ×2 (20:18→23:46)
--- NOTE | 2018-08-21 20:34 | NUR ---
NURSING PROGRESS NOTE The patient has been sitting in the day room and watching TV. He was cooperative with the evening assessment. One to one with the patient to assess severity of depressive symptoms and self harm risk. He remains on q 15 safety checks and has not had any self injurious behaviors reported or observed. The patient appears appropriately dressed. He described his day as "lousy. I'm having pain" He reports his appetite is good. He denies A/V hallucinations or paranoia. There was no evidence during the assessment that he is responding to internal stimuli. He describes his mood as "poor, grumpy, cocky, rude, but I hold it in" When asked about anxiety he stated that he felt "relaxed" He denies thoughts to harm others. When asked if had self harm thoughts he stated, "a little bit" When asked about discharge plans, "I don't really know where I'm staying. If I get the [place] loan I could probable talk someone to let me stay in their house. Money talks" He denies medication side effects. He is medication compliant.
[2018-08-22] MEDS: acetaminophen 325mg tablet PO PRN (06:05)
[2018-08-22] MEDS: folic acid 1mg tablet PO SCH (07:26)
[2018-08-22] MEDS: gabapentin 300mg capsule PO SCH (07:26)
[2018-08-22] MEDS: levetiracetam 250mg tablet PO SCH (07:27)
[2018-08-22] MEDS: buprenorphine/naloxone 2-0.5mg sublingual tablet SL SCH (07:27)
[2018-08-22] MEDS: nicotine 21mg patch - 24 hr TD SCH (07:29)
[2018-08-22] MEDS: LIDOcaine 5% patch TP SCH (07:32)
[2018-08-22 08:22] VITALS: BP 121/73
[2018-08-22] MEDS ORDERED: DULO30CA51 PO (09:47)
[2018-08-22] MEDS ORDERED: LISI10TA4 PO (09:47)
[2018-08-22] MEDS ORDERED: TRAZ-251 PO (09:47)
[2018-08-22] MEDS ORDERED: FOLI1TAB16 PO (09:47)
[2018-08-22] MEDS ORDERED: LEVE250T PO (09:47)
[2018-08-22] MEDS ORDERED: GABA300C PO (09:47)
[2018-08-22] MEDS: clonazePAM 0.5mg tablet PO PRN (11:22)
--- NOTE | 2018-08-22 11:30 | NUR ---
Pt opted to take care of other business during the limited time we had to discharge him and pics were not taken. That being said, the pics were of dry skin with closed scabbing on feet and one knee at admission. Pt chose to leave [facility] prior to pics being taken. Addendum: 08/22/18 at 1134 by Moris Chavira RN Amended: Links added.
--- NOTE | 2018-08-22 11:45 | NUR ---
Nursing Discharge Note Pt discharged from [facility] @ 1130, ambulatory with [facility] special events driver. [facility] special events driver is taking Pt to the [facility]. Pt's belongings and valuables were inventoried and returned to him by [employer]. Pt has been improving since admission and was in no acute physical or emotional distress. Pt understood discharge instructions and did not want nicotine replacement.
== END 2018-08-22 11:30 | disposition short-term general hospital (02) | DRG 751 ==
LOC: ADULT MH 10:13
PROVIDERS: ADMIT Psychiatry & Neurology Psychiatry; ATTEND Family Medicine
DX: F33.2 Major depressive disorder, recurrent severe without psychotic features (principal); F11.20 Opioid dependence, uncomplicated; R45.851 Suicidal ideations; F10.21 Alcohol dependence, in remission; F41.9 Anxiety disorder, unspecified; F15.10 Other stimulant abuse, uncomplicated; M54.5 Low back pain; F17.210 Nicotine dependence, cigarettes, uncomplicated; F60.3 Borderline personality disorder; F60.81 Narcissistic personality disorder; G40.409 Other generalized epilepsy and epileptic syndromes, not intractable, without status epilepticus; G89.29 Other chronic pain; M54.9 Dorsalgia, unspecified; I10 Essential (primary) hypertension; J45.909 Unspecified asthma, uncomplicated; Z72.89 Other problems related to lifestyle; Z59.0 Homelessness; Z63.4 Disappearance and death of family member; Z76.5 Malingerer [conscious simulation]; Z91.14 Patient's other noncompliance with medication regimen; Z79.899 Other long term (current) drug therapy; Z82.3 Family history of stroke; Z80.9 Family history of malignant neoplasm, unspecified
CPT/HCPCS: 36415; 80061; 83036; 87070; 99285; Q0177

== ENCOUNTER 2018-09-05 09:37 | Emergency (ER) | payer MEDICAID ==
[~2018-09-05] VITALS: Ht 170.2 cm; Wt 65.0 kg
[~2018-09-05 09:37] MED LIST changes: +BACL10TA PO; +DULO30CA51 PO; +FOLI1TAB16 PO; +GABA-532 PO; +GABA300C PO; +IBUP-1986 PO; +LEVE250T PO; +LISI10TA4 PO; -NO HOME MEDS; +TRAZ-251 PO
[2018-09-05 09:47] VITALS: BP 150/81
[2018-09-05] MEDS ORDERED: IBUP-1985 PO (09:58)
[2018-09-05] MEDS ORDERED: METH-360 PO (09:58)
[2018-09-05] MEDS ORDERED: orphenadrine citrate 60mg/2ml inj. IM ONE (10:00)
[2018-09-05] MEDS ORDERED: ketorolac tromethamine 15mg/ml inj. IM ONE (10:00)
== END 2018-09-05 10:17 | disposition home or self-care (01) ==
LOC: ER 09:37
DX: M54.5 Low back pain (principal); G89.29 Other chronic pain; F17.200 Nicotine dependence, unspecified, uncomplicated; F15.90 Other stimulant use, unspecified, uncomplicated; F11.90 Opioid use, unspecified, uncomplicated; Z79.899 Other long term (current) drug therapy; Z59.0 Homelessness
CPT/HCPCS: 96372; 99283; J1885; J2360

== ENCOUNTER 2018-09-09 11:01 | Emergency (ER) | payer MEDICAID ==
[~2018-09-09] VITALS: Ht 172.7 cm; Wt 71.8 kg
[~2018-09-09 11:01] MED LIST changes: +IBUP-1985 PO; +METH-360 PO
[2018-09-09 11:07] VITALS: BP 126/77
[2018-09-09] MEDS ORDERED: ketorolac trometh. 30mg/ml inj. IM ONE (12:50)
== END 2018-09-09 13:03 | disposition home or self-care (01) ==
LOC: ER 11:01
DX: G89.29 Other chronic pain (principal); M54.9 Dorsalgia, unspecified; R20.0 Anesthesia of skin; R20.2 Paresthesia of skin; F17.200 Nicotine dependence, unspecified, uncomplicated; F15.90 Other stimulant use, unspecified, uncomplicated; F11.90 Opioid use, unspecified, uncomplicated; Z86.69 Personal history of other diseases of the nervous system and sense organs; Z79.899 Other long term (current) drug therapy
CPT/HCPCS: 96372; 99283; J1885

== ENCOUNTER 2018-09-10 12:47 | Emergency (ER) | payer MEDICAID ==
[~2018-09-10] VITALS: Ht 172.7 cm; Wt 72.7 kg
[2018-09-10 13:10] VITALS: BP 121/81
[2018-09-10] MEDS ORDERED: acetaminophen 325mg tablet PO ONE (13:30)
--- NOTE | 2018-09-10 13:30 | NUR ---
PT REPORTS TO REGISTRATION, CISCO "I AM NOT SIGNING ANY PAPERS UNTIL I GET MORPHINE."
== END 2018-09-10 13:59 | disposition home or self-care (01) ==
LOC: ER 12:47
DX: M54.9 Dorsalgia, unspecified (principal); G89.29 Other chronic pain; F15.90 Other stimulant use, unspecified, uncomplicated; F11.90 Opioid use, unspecified, uncomplicated; Z79.1 Long term (current) use of non-steroidal anti-inflammatories (NSAID); Z79.899 Other long term (current) drug therapy; Z76.5 Malingerer [conscious simulation]; Z60.2 Problems related to living alone; Z59.0 Homelessness
CPT/HCPCS: 99282

== ENCOUNTER 2018-09-18 08:05 | Emergency (ER) | payer MEDICAID ==
[~2018-09-18] VITALS: Ht 172.7 cm; Wt 73.2 kg
[~2018-09-18 08:05] MED LIST changes: +LIDO700A47 TD
[2018-09-18 08:12] VITALS: BP 146/89
[2018-09-18] MEDS ORDERED: LIDOcaine 5% patch TP STA (08:28)
[2018-09-18] MEDS ORDERED: ketorolac trometh. 30mg/ml inj. IM ONE (08:30)
== END 2018-09-18 09:39 | disposition home or self-care (01) ==
LOC: ER 08:05
DX: G89.29 Other chronic pain (principal); M54.5 Low back pain; F15.90 Other stimulant use, unspecified, uncomplicated; F11.90 Opioid use, unspecified, uncomplicated; Z60.2 Problems related to living alone; Z59.0 Homelessness; Z79.899 Other long term (current) drug therapy
CPT/HCPCS: 96372; 99283; J1885

== ENCOUNTER 2018-11-29 01:59 | Emergency (ER) | payer MEDICAID ==
[~2018-11-29] VITALS: Ht 172.7 cm; Wt 75.0 kg
[2018-11-29 01:59] VITALS: BP 147/81
[~2018-11-29 01:59] MED LIST changes: -DULO30CA51 PO; +DULO30CA52 PO
[2018-11-29] MEDS ORDERED: ketorolac trometh inj. 60 MG/2 ML VIAL IM ONE (02:15)
[2018-11-29] MEDS ORDERED: IBUP-1986 PO (02:16)
== END 2018-11-29 02:32 | disposition home or self-care (01) ==
LOC: ER 01:59
DX: G89.29 Other chronic pain (principal); M54.5 Low back pain; R60.0 Localized edema; F15.90 Other stimulant use, unspecified, uncomplicated; F11.90 Opioid use, unspecified, uncomplicated; Z59.0 Homelessness; Z79.899 Other long term (current) drug therapy
CPT/HCPCS: 96372; 99283; J1885

== ENCOUNTER 2018-12-20 10:24 | Emergency (ER) | payer MEDICAID ==
[~2018-12-20] VITALS: Ht 172.7 cm; Wt 73.2 kg
[2018-12-20] MEDS ORDERED: ketorolac tromethamine 15mg/ml inj. IM ONE (10:45)
[2018-12-20] MEDS ORDERED: orphenadrine citrate 60mg/2ml inj. IM ONE (10:45)
[2018-12-20 10:53] VITALS: BP 152/74
== END 2018-12-20 11:04 | disposition home or self-care (01) ==
LOC: ER 10:25
DX: G89.29 Other chronic pain (principal); M54.41 Lumbago with sciatica, right side; F15.90 Other stimulant use, unspecified, uncomplicated; F11.90 Opioid use, unspecified, uncomplicated; Z59.0 Homelessness; Z79.899 Other long term (current) drug therapy
CPT/HCPCS: 96372; 99283; J1885; J2360

== ENCOUNTER 2019-04-17 09:42 | Emergency (ER) | payer MEDICAID ==
[~2019-04-17] VITALS: Ht 172.7 cm; Wt 73.2 kg
[2019-04-17 09:50] VITALS: BP 126/84
== END 2019-04-17 12:27 | disposition left against medical advice (07) ==
LOC: ER 09:42
DX: M54.9 Dorsalgia, unspecified (principal); Z53.21 Procedure and treatment not carried out due to patient leaving prior to being seen by health care provider

== ENCOUNTER 2019-04-22 10:38 | Emergency (ER) | payer MEDICAID ==
[~2019-04-22] VITALS: Ht 172.7 cm; Wt 18.0 kg
[2019-04-22 10:46] VITALS: BP 174/115
[2019-04-22] MEDS ORDERED: ketorolac trometh. 30mg/ml inj. IM STA (11:11)
[2019-04-22] MEDS ORDERED: buprenorphine/naloxone 2-0.5mg sublingual tablet SL STA (11:22)
== END 2019-04-22 11:49 | disposition home or self-care (01) ==
LOC: ER 10:39
DX: G89.29 Other chronic pain (principal); M54.5 Low back pain; R56.9 Unspecified convulsions; I10 Essential (primary) hypertension; F17.200 Nicotine dependence, unspecified, uncomplicated; F15.90 Other stimulant use, unspecified, uncomplicated; F11.90 Opioid use, unspecified, uncomplicated; Z60.2 Problems related to living alone; Z59.0 Homelessness; Z86.69 Personal history of other diseases of the nervous system and sense organs; Z79.899 Other long term (current) drug therapy
CPT/HCPCS: 96372; 99283; J1885

== ENCOUNTER 2019-05-01 12:05 | Emergency (ER) | payer MEDICAID ==
[~2019-05-01] VITALS: Ht 172.7 cm; Wt 74.0 kg
[2019-05-01] MEDS ORDERED: CEPH500C5 PO (12:53)
[2019-05-01 13:00] VITALS: BP 150/96
== END 2019-05-01 13:06 | disposition home or self-care (01) ==
LOC: ER 12:06
DX: S40.862A Insect bite (nonvenomous) of left upper arm, initial encounter (principal); S40.861A Insect bite (nonvenomous) of right upper arm, initial encounter; L03.114 Cellulitis of left upper limb; I10 Essential (primary) hypertension; G89.29 Other chronic pain; Z86.69 Personal history of other diseases of the nervous system and sense organs; F17.200 Nicotine dependence, unspecified, uncomplicated; F15.90 Other stimulant use, unspecified, uncomplicated; F11.90 Opioid use, unspecified, uncomplicated; Z60.2 Problems related to living alone; Z59.0 Homelessness; Z79.2 Long term (current) use of antibiotics; Z79.899 Other long term (current) drug therapy; W57.XXXA Bitten or stung by nonvenomous insect and other nonvenomous arthropods, initial encounter; Y93.89 Activity, other specified; Y92.89 Other specified places as the place of occurrence of the external cause; Y99.8 Other external cause status
CPT/HCPCS: 99284

== ENCOUNTER 2019-05-11 15:58 | Emergency (ER) | payer MEDICAID ==
[~2019-05-11] VITALS: Ht 172.7 cm; Wt 73.2 kg
[2019-05-11 16:27] VITALS: BP 154/87
[2019-05-11] MEDS ORDERED: ketorolac tromethamine 15mg/ml inj. IM ONE (16:50)
[2019-05-11] MEDS ORDERED: orphenadrine citrate 60mg/2ml inj. IM ONE (16:50)
[2019-05-11] MEDS ORDERED: HYDR28CR14 TOP (16:51)
[2019-05-11] MEDS ORDERED: CYCL-1 PO (16:51)
== END 2019-05-11 17:29 | disposition home or self-care (01) ==
LOC: ER 16:00
DX: M54.2 Cervicalgia (principal); M54.5 Low back pain; G89.29 Other chronic pain; I10 Essential (primary) hypertension; R56.9 Unspecified convulsions; Z79.899 Other long term (current) drug therapy; F15.10 Other stimulant abuse, uncomplicated; F11.10 Opioid abuse, uncomplicated; Z59.0 Homelessness
CPT/HCPCS: 96372; 99283; J1885; J2360

== ENCOUNTER 2020-01-08 12:36 | Emergency (ER) | payer MEDICAID ==
[~2020-01-08] VITALS: Ht 172.7 cm; Wt 78.6 kg
[~2020-01-08 12:36] MED LIST changes: +CYCL-1 PO; +HYDR28CR14 TOP
[2020-01-08 12:42] VITALS: BP 144/95
[2020-01-08] MEDS ORDERED: IBUP-1984 PO (13:32)
[2020-01-08] MEDS ORDERED: ORPH100T2 PO (13:32)
[2020-01-08] MEDS ORDERED: cyclobenzaprine 10mg tablet PO ONE (13:35)
[2020-01-08] MEDS ORDERED: ketorolac tromethamine 15mg/ml inj. IM ONE (13:35)
== END 2020-01-08 14:02 | disposition home or self-care (01) ==
LOC: ER 12:37
DX: M54.5 Low back pain (principal); G89.29 Other chronic pain; I10 Essential (primary) hypertension; F15.90 Other stimulant use, unspecified, uncomplicated; F11.90 Opioid use, unspecified, uncomplicated; Z86.69 Personal history of other diseases of the nervous system and sense organs; Z72.89 Other problems related to lifestyle; Z60.2 Problems related to living alone; Z59.0 Homelessness; Z79.899 Other long term (current) drug therapy
CPT/HCPCS: 96372; 99283; J1885